=== PATIENT | male | born 2000 | race Caucasian/White ===

== ENCOUNTER → 2021-02-27 | Outpatient (CLI) | payer OTHER ==
--- NOTE | 2021-02-27 20:19 | US ---
EXAMINATION TYPE: US extremity nonvasc mass LT DATE OF EXAM: 02/27/2021 COMPARISON: NONE CLINICAL HISTORY: M71.22 Synovial cyst of popliteal space [[place]]. Left knee pain Left popliteal fossa: appears wnl Limited scanning performed IMPRESSION: Limited evaluation of the left popliteal fossa, no abnormality evident
== END | disposition home or self-care (01) ==
LOC: EEVIPCON 15:40 → RADUSWWP 15:51
PROVIDERS: ATTEND Family Medicine
DX: M71.22 Synovial cyst of popliteal space [Baker], left knee (principal)

== ENCOUNTER → 2021-11-02 | Outpatient (CLI) | payer OTHER ==
[2021-11-02 22:40] LABS: Basophils # (A) 0.07 X 10*3/uL (0.00-0.10); Eosinophils % (A) 2.9 %; HGB 14.5 g/dL (13.0-17.0); Lymphocytes # (A) 1.89 X 10*3/uL (0.90-5.00); Lymphocytes % (A) 27.8 %; MCH 27.1 pg (27.0-32.0); MCHC 32.2 g/dL (32.0-37.0); MCV 84.1 fL (80.0-97.0); Mean Platelet Volume 11.6 fL (9.5-12.2); Monocytes # (A) 0.69 X 10*3/uL (0.20-1.00); Monocytes % (A) 10.1 %; Neutrophils # (A) 3.92 X 10*3/uL (1.80-7.70); Neutrophils % (A) 57.8 %; Platelet Count 288 X 10*3/uL (140-440); RBC 5.35 X 10*6/uL (4.40-5.60); RDW 13.8 % (11.5-14.5)
[2021-11-02 22:55] LABS: African American GFR (CKD) 142.1 (60.0-200.0); Albumin 4.5 g/dL (3.8-4.9); Albumin/Globulin Ratio 1.55 (1.60-3.17); Anion Gap 10.7 mmol/L (10.00-18.00); BUN/Creat Ratio 13.47 Ratio (12.00-20.00); Blood Urea Nitrogen 11.5 mg/dL (9.0-27.0); C Reactive Protein 0.4 mg/dL (0.00-0.80); Calcium 9.5 mg/dL (8.7-10.3); Carbon Dioxide 24.5 mmol/L (20.0-27.5); Globulin 2.9 g/dL (1.6-3.3); Non-African American GFR(CKD) 122.6 (60.0-200.0); Potassium 4.3 mmol/L (3.5-5.5); Total Bilirubin 0.2 mg/dL (0.30-1.20); Total Protein 7.4 g/dL (6.2-8.2)
[2021-11-02 23:08] LABS: Erythrocyte Sedimentation Rate 10 mm/Hr (0-15)
[2021-11-03 01:19] LABS: Gliadin AB IgA, Deaminated NEGATIVE (NEGATIVE); Gliadin AB IgA, Unit 0.2 U/mL; Gliadin AB IgG, Deaminated NEGATIVE (NEGATIVE)
== END | disposition home or self-care (01) ==
LOC: LABWHC1 16:26
PROVIDERS: ATTEND Internal Medicine Gastroenterology
DX: K58.0 Irritable bowel syndrome with diarrhea (principal)
CPT/HCPCS: 36415; 80053; 83516; 85025; 85652; 86140

== ENCOUNTER 2023-12-07 13:08 | Emergency (ER) | payer OTHER, MEDICARE ==
--- NOTE | 2023-12-07 13:18 | ED ---
Chest Pain HPI - General Source: patient, family, RN notes reviewed Mode of arrival: ambulatory Limitations: no limitations - History of Present Illness MD Complaint: chest pain <Jaylyn Soto - Last Filed: 12/07/23 13:16> - General Source: patient, family, RN notes reviewed Mode of arrival: ambulatory Limitations: no limitations <Tish Marte - Last Filed: 12/07/23 22:05> - General Chief Complaint: Chest Pain Stated Complaint: Chest Pain Time Seen by Provider: 12/07/23 13:13 - History of Present Illness Initial Comments: Quick Note: This is a 23-year-old male who presents to the emergency department for chest pain. States that it started last night. This goes across his whole chest and down the right arm. He has minor shortness of breath. Patient is a rather poor historian and is having difficulty characterizing the pain. Denies any cardiac history. Also denies any history of similar symptoms in the past. (Jaylyn Soto) 23-year-old male presents to the emergency department with mother and father for evaluation of chest pain with radiation to the right arm. Father states that he was complaining about this last night. He states that the pain is in his central chest. He also reports pain going down the right arm and in the right anterior shoulder. He does report that it is painful catching his breath. Ad mits to some epigastric abdominal pain. Past medical history significant for GERD, autism spectrum disorder. (Tish Marte) - Related Data Allergies Allergy/AdvReac Type Severity Reaction Status Date / Time amoxicillin Allergy Nausea & Verified 12/07/23 13:55 Vomiting & Diarrhea Review of Systems ROS Other: All systems not noted in ROS Statement are negative. <Jaylyn Soto - Last Filed: 12/07/23 13:16> ROS Other: All systems not noted in ROS Statement are negative. <Tish Marte - Last Filed: 12/07/23 22:05> ROS Statement: Those systems with pertinent positive or pertinent negative responses have been documented in the HPI. General Exam <Jaylyn Soto - Last Filed: 12/07/23 13:16> Limitations: no limitations General appearance: alert, in no apparent distress Head exam: Present: atraumatic, normocephalic, normal inspection Eye exam: Present: normal appearance, PERRL, EOMI. Absent: scleral icterus, conjunctival injection, periorbital swelling ENT exam: Present: normal exam, mucous membranes moist Neck exam: Present: normal inspection. Absent: tenderness, meningismus, lymphadenopathy Respiratory exam: Present: normal lung sounds bilaterally. Absent: respiratory distress, wheezes, rales, rhonchi, stridor Cardiovascular Exam: Present: regular rate, normal rhythm, normal heart sounds. Absent: systolic murmur, diastolic murmur, rubs, gallop, clicks GI/Abdominal exam: Present: soft, normal bowel sounds. Absent: distended, tenderness, guarding, rebound, rigid Extremities exam: Present: normal inspection, full ROM, normal capillary refill. Absent: tenderness, pedal edema, joint swelling, calf tenderness Back exam: Present: normal inspection Neurological exam: Present: alert, oriented X3 Psychiatric exam: Present: normal affect, normal mood Skin exam: Present: warm, dry, intact, normal color. Absent: rash <Tish Marte - Last Filed: 12/07/23 22:05> - General Exam Comments Initial Comments: Visual Physical Exam Vital signs reviewed General: Well-appearing, nontoxic, no acute distress. Head: Normocephalic, atraumatic Eyes: PERRLA, EOMI ENT: Airway patent Chest: Nonlabored breathing Skin: No visual rash, normal skin tone Neuro: Alert and oriented 3 Musculoskeletal: No gross abnormalities (Jaylyn Soto) Course Vital Signs 12/07/23 12/07/23 12/07/23 13:50 17:29 19:00 Temperature 98.5 F 98.0 F Pulse Rate 81 67 64 Respiratory 18 20 18 Rate Blood Pressure 160/104 157/90 137/84 O2 Sat by Pulse 97 98 99 Oximetry Chest Pain [facility] <Jaylyn Soto - Last Filed: 12/07/23 13:16> <Tish Marte - Last Filed: 12/07/23 22:05> - MDM I performed the QuickNote portion of this chart. Signed Jaylyn Soto PA-C. (Jaylyn Soto) Was pt. sent in by a medical professional or institution (PAM Coleman, OTC CLERK, urgent care, hospital, or intermediate...) When possible be specific @ -No Did you speak to anyone other than the patient for history (EMS, parent, family, police, friend...)? What history was obtained from this source @ -Mother and father provided similar history of this patient Did you review nursing and triage notes (agree or disagree)? Why? @ -I reviewed and agree with nursing and triage notes Were old charts reviewed (outside hosp., previous admission, EMS record, old EKG, old radiological studies, urgent care reports/EKG's, intermediate records)? Report findings @ -No old charts were reviewed Differential Diagnosis (chest pain, altered mental status, abdominal pain women, abdominal pain men, vaginal bleeding, weakness, fever, dyspnea, syncope, headache, dizziness, GI bleed, back pain, seizure, CVA, palpatations, mental health, musculoskeletal)? @ -Differential Chest Pain: Stable Angina, Unstable Angina, STEMI, NSTEMI Aortic Dissection, Pneumothorax, Musculoskeletal, Esophageal Spasm GERD, Cholecystitis, Pancreatitis, Zoster, this is not meant to be an all-inclusive list. EKG interpreted by me (3pts min.). @ -EKG at 1407 shows sinus rhythm with sinus arrhythmia rate 74, SD 138, QRS 81 X-rays interpreted by me (1pt min.). @ -Chest XR shows hyperventilation with no acute infiltrate CT interpreted by me (1pt min.). @ -None done U/S interpreted by me (1pt. min.). @ -None done What testing was considered but not performed or refused? (CT, X-rays, U/S, labs)? Why? @ -None What meds were considered but not given or refused? Why? @ -None Did you discuss the management of the patient with other professionals (professionals i.e. , PA, OTC CLERK, lab, RT, psych nurse, forensic social worker, soil fertility specialist, teacher, neighborhood conservation officer, bottle caser)? Give summary @ -No Was smoking cessation discussed for >3mins.? @ -No Was critical care preformed (if so, how long)? @ -No Were there social determinants of health that impacted care today? How? (Homelessness, low income, unemployed, alcoholism, drug addiction, tr ansportation, low edu. Level, literacy, decrease access to med. care, fpc, rehab)? @ -No Was there de-escalation of care discussed even if they declined (Discuss DNR or withdrawal of care, Hospice)? DNR status @ -No What co-morbidities impacted this encounter? (DM, HTN, Smoking, COPD, CAD, Cancer, CVA, ARF, Chemo, Hep., AIDS, mental health diagnosis, sleep apnea, morbid obesity)? @ -None Was patient admitted / discharged? Hospital course, mention meds given and route, prescriptions, significant lab abnormalities, going to OR and other pertinent info. @ -Discharge. Patient presented to the emergency department for evaluation of chest pain radiating to the right anterior arm. Chest x-ray was obtained which shows hypoventilation with no acute pulmonary infiltrate. Laboratory studies o btained.CBC unremarkable, normal coagulation studies; negative troponin, lipase 240. Patient received a GI cocktail and ibuprofen. He states that his pain improved. Discussed these findings with patient and his family. Patient will be discharged home. Patient and family understanding agreeable with plan. Strict return precautions discussed. Patient stable at time of discharge. Case discussed with Dr. Conrad Undiagnosed new problem with uncertain prognosis? @ -No Drug Therapy requiring intensive monitoring for toxicity (Heparin, Nitro, Insulin, Cardizem)? @ -No Were any procedures done? @ -No Diagnosis/symptom? @ -Chest pain, epigastric pain, GERD Acute, or Chronic, or Acute on Chronic? @ -Acute Uncomplicated (without systemic symptoms) or Complicated (systemic symptoms)? @ -Uncomplicated Side effects of treatment? @ -No Exacerbation, Progression, or Severe Exacerbation? @ -No Poses a threat to life or bodily function? How? (Chest pain, [place], [place], pneumonia, PE, COPD, DKA, ARF, appy, cholecystitis, CVA, Diverticulitis, Homicidal, Suicidal, threat to staff... and all critical care pts) @ -No (Tish Marte) Disposition <Jaylyn Soto - Last Filed: 12/07/23 13:16> Is patient prescribed a controlled substance at d/c from ED?: No <Tish Marte - Last Filed: 12/07/23 22:05> Clinical Impression: Atypical chest pain, Gastroesophageal reflux disease Disposition: HOME SELF-CARE Condition: Stable Instructions (If sedation given, give patient instructions): Chest Pain (ED) Additional Instructions: Please utilize Tylenol and Motrin for discomfort. Follow up with your primary care provider. Return to the emergency department for new or worsening symptoms. Referrals: Sean Prajapati MD [Primary Care Provider] - 1-2 days
[2023-12-07 14:38] LABS: Basophils # (A) 0.1 k/uL (0-0.2); Basophils % (A) 1 %; Eosinophils # (A) 0.2 k/uL (0-0.7); Eosinophils % (A) 3 %; HCT 44.9 % (39.0-53.0); HGB 15.4 gm/dL (13.0-17.5); Lymphocytes # (A) 1.7 k/uL (1.0-4.8); Lymphocytes % (A) 26 %; MCH 29.8 pg (25.0-35.0); MCHC 34.2 g/dL (31.0-37.0); MCV 87.2 fL (80.0-100.0); Mean Platelet Volume 8.4; Monocytes # (A) 0.5 k/uL (0-1.0); Monocytes % (A) 8 %; Neutrophils % (A) 60 %; Platelet Count 280 k/uL (150-450); RBC 5.15 m/uL (4.30-5.90); RDW 12.8 % (11.5-15.5); WBC 6.6 k/uL (3.8-10.6)
--- NOTE | 2023-12-07 15:19 | XR ---
EXAMINATION TYPE: XR chest 2V DATE OF EXAM: 12/07/2023 COMPARISON: None HISTORY: 23-year-old male with chest pain TECHNIQUE: PA and lateral views FINDINGS: Heart size likely accentuated due to low lung volumes. Mild interstitial prominence versus crowded va scular markings. No consolidation or pleural effusion. IMPRESSION: Findings related to hypoventilatory changes. No definite acute process.
[2023-12-07 15:22] LABS: ALT 51 U/L (4-49); AST 35 U/L (17-59); African American GFR (CKD) >90 (>60 ml/min/1.73 sqM); Albumin 4.7 g/dL (3.5-5.0); Alkaline Phosphatase 70 U/L (38-126); Anion Gap 6 mmol/L; Blood Urea Nitrogen 14 mg/dL (9-20); Calcium 9.7 mg/dL (8.4-10.2); Carbon Dioxide 24 mmol/L (22-30); Chloride 107 mmol/L (98-107); Glucose 98 mg/dL (74-99); Non-African American GFR(CKD) >90 (>60 ml/min/1.73 sqM); Potassium 4.7 mmol/L (3.5-5.1); Sodium 137 mmol/L (137-145); Total Bilirubin 0.6 mg/dL (0.2-1.3); Total Protein 7.8 g/dL (6.3-8.2)
[2023-12-07] MEDS: IBUPROFEN 600 MG TAB PO STA (17:32)
[2023-12-07] MEDS: MAG HYDROX/AL HYDROX/SIMETH 30 ML, HYOSCYAMINE ELIXIR 10 ML, LIDOCAINE VISCOUS 2% 10 ML PO STA (17:33)
[2023-12-07 18:08] LABS: INR 0.9 (<1.2); Partial Thromboplastin Time 24.5 sec (22.0-30.0); Prothrombin Time 10.2 sec (10.0-12.5)
[2023-12-07 19:30] VITALS: BP 137/84; PULSE 64; RESP 18; TEMP 98
== END 2023-12-07 19:00 | disposition home or self-care (01) ==
LOC: EC 13:08
DX: K21.9 Gastro-esophageal reflux disease without esophagitis (principal); Z88.0 Allergy status to penicillin
CPT/HCPCS: 36415; 71046; 80053; 83690; 84484; 85025; 85610; 85730; 93005; 99285

== ENCOUNTER 2024-08-21 18:33 | Emergency (ER) | payer MEDICARE, OTHER ==
--- NOTE | 2024-08-21 19:13 | ED ---
Chest Pain HPI - General Source: patient, family, RN notes reviewed Mode of arrival: ambulatory Limitations: no limitations - History of Present Illness MD Complaint: chest pain Time: 14:30 Pain Radiation: RUE <Rashad Lee - Last Filed: 08/21/24 19:11> - General Source: patient, family, RN notes reviewed, old records reviewed <Brady Espino - Last Filed: 08/21/24 22:12> - General Chief Complaint: Chest Pain Stated Complaint: RT SHOULDER PAIN AND ARM HEART RACING Time Seen by Provider: 08/21/24 18:49 - History of Present Illness Initial Comments: This is a 24-year-old male with history of cognitive issues presenting with parents for chest pain and palpitations since 1430 this afternoon. Patient states pain is radiating to his right arm. Denies dyspnea, dizziness, sweating, pallor. Patient endorses history of anxiety that is increasing in severity. Patient endorses crying and angry outburst today as well. (Rashad Lee) Patient has a 24-year-old male who was brought in by his parents over concern for chest discomfort/heart palpitations. Patient does have a history of cognitive disability as well as anxiety. Patient has been having more outburst lately and is complaining of "my heart thumping." He description seems more like palpitations and less like rachael chest pain. Usually occur during stressful situations or when he gets worked up. Has been ongoing for multiple weeks. Occasionally complains of right arm pain with movements. Currently has no pain regarding this. Denies any other acute complaints including diaphoresis, nausea, vomiting. No significant cardiac history for the patient. Patient's parents are well familiar with the patient and they have been attempting to follow-up with [facility] however have not yet had appointments. Their concern for it being anxiety as it does run in the family. They present for further evaluation. Originally seen as a quick note.Once again, symptoms have been ongoing for multiple weeks intermittent. More or less daily. (Brady Espino) - Related Data Previous Rx's Medication Instructions Recorded LORazepam [Ativan] 0.5 mg PO BID PRN 3 Days #6 tab 08/21/24 Allergies Allergy/AdvReac Type Severity Reaction Status Date / Time amoxicillin Allergy Nausea & Verified 08/21/24 18:52 Vomiting & Diarrhea Review of Systems ROS Other: All systems not noted in ROS Statement are negative. <Rashad Lee - Last Filed: 08/21/24 19:11> ROS Other: All systems not noted in ROS Statement are negative. <Brady Espino - Last Filed: 08/21/24 22:12> ROS Statement: Those systems with pertinent positive or pertinent negative responses have been documented in the HPI. Review of Systems: CONST: Denies fever EYES: Denies blurry vision ENT: Denies nasal congestion C/V: Denies Chest pain RESP: Denies shortness of breath GI: Denies abdominal pain : Denies dysuria SKIN: Denies rash. MSK: Denies joint pain. NEURO: Denies headache (Brady Espino) EKG Findings - EKG Comments: EKG Findings:: 12-lead Electrocardiogram Interpretation Note. EKG was reviewed and interpreted by myself. 12-lead ECG performed at 01 is interpreted by me as revealing normal sinus rhythm at a rate of 98 beats per minute. [place] is normal. CT interval is 141 ms, QRS duration is 86 ms, QTc is 391 ms.. There were no ST or T wave abnormalities to suggest myocardial ischemia or injury. R wave progression across the precordium was satisfactory. By my interpretation this EKG is non-diagnostic for acute ischemia. - EKG Results: EKG: interpreted by ERMD <rBady Espino - Last Filed: 08/21/24 22:12> Past Medical History Past Medical History: GERD/Reflux Additional Past Medical History / Comment(s): cognitive disability History of Any Multi-Drug Resistant Organisms: None Reported Past Surgical History: No Surgical Hx Reported Past Psychological History: No Psychological Hx Reported Smoking Status: Never smoker Past Alcohol Use History: None Reported Past Drug Use History: None Reported <Rashad Lee - Last Filed: 08/21/24 19:11> General Exam Limitations: no limitations <Rashad Lee - Last Filed: 08/21/24 19:11> <Brady Espino - Last Filed: 08/21/24 22:12> - General Exam Comments Initial Comments: Visual Physical Exam Vital signs reviewed General: Well-appearing, nontoxic, no acute distress. Head: Normocephalic, atraumatic Eyes: PERRLA, EOMI ENT: Airway patent Chest: Nonlabored breathing Skin: No visual rash, normal skin tone Neuro: Alert and oriented 3 Musculoskeletal: No gross abnormalities (Rashad Lee) General: Appears mildly anxious but otherwise resting comfortably. HEAD: Normal with no signs of head trauma. EYES: PERRLA, EOMI, conjunctiva normal, no discharge. ENT: Hearing grossly intact, normal oropharynx. RESPIRATORY: Clear breath sounds bilaterally. No wheezes, rales, or rhonchi. C/V: Regular rate and rhythm. S1 and S2 auscultated, no edema, peripheral pulses 2+ and intact throughout ABD: Abd is soft, nontender, nondistended EXT: Normal range of motion, no obvious deformity SKIN: No rashes or lesions observed on exposed skin. NEURO: Alert and oriented x 4. (Brady Espino) Course Vital Signs 08/21/24 08/21/24 18:52 21:17 Temperature 97.5 F L Pulse Rate 103 H 100 Respiratory 20 16 Rate Blood Pressure 161/118 151/97 O2 Sat by Pulse 97 98 Oximetry Chest Pain MDM <Rashad Lee - Last Filed: 08/21/24 19:11> <Brady Espino - Last Filed: 08/21/24 22:12> - MDM I completed the quick note portion of this chart signed RHYS Jon (Rashad Lee) Was pt. sent in by a medical professional or institution ([facility] Coleman, DIRECTOR OF SPECIAL SERVICES, urgent care, hospital, or shelter...) When possible be specific @ -No Did you speak to anyone other than the patient for history (EMS, parent, family, police, friend...)? What history was obtained from this source @ -Patient's parents are the primary historians for the patient. Did you review nursing and triage notes (agree or disagree)? Why? @ -I reviewed and agree with nursing and triage notes Were old charts reviewed (outside hosp., previous admission, EMS record, old EKG, old radiological studies, urgent care reports/EKG's, shelter records)? Report findings @ -No old charts were reviewed Differential Diagnosis (chest pain, altered mental status, abdominal pain women, abdominal pain men, vaginal bleeding, weakness, fever, dyspnea, syncope, headache, dizziness, GI bleed, back pain, seizure, CVA, palpatations, mental health, musculoskeletal)? @ -Heart palpitations, anxiety, panic attacks, chest pain. This list is not all inclusive. EKG interpreted by me (3pts min.). @ -As above X-rays interpreted by me (1pt min.). @ -X-ray reveals no obvious acute cardiopulmonary process. CT interpreted by me (1pt min.). @ -None done U/S interpreted by me (1pt. min.). @ -None done What testing was considered but not performed or refused? (CT, X-rays, U/S, labs)? Why? @ -None What meds were considered but not given or refused? Why? @ -None Did you discuss the management of the patient with other professionals (professionals i.e. , PA, DIRECTOR OF SPECIAL SERVICES, lab, RT, psych nurse, social services aide, senior product designer, teacher, policy officer, director of casework)? Give summary @ -No Was smoking cessation discussed for >3mins.? @ -No Was critical care preformed (if so, how long)? @ -No Were there social determinants of health that impacted care today? How? (Homelessness, low income, unemployed, alcoholism, drug addiction, transportation, low edu. Level, literacy, decrease access to med. care, intermediate, rehab)? @ -No Was there de-escalation of care discussed even if they declined (Discuss DNR or withdrawal of care, Hospice)? DNR status @ -No What co-morbidities impacted this encounter? (DM, HTN, Smoking, COPD, CAD, Cancer, CVA, ARF, Chemo, Hep., AIDS, mental health diagnosis, sleep apnea, morb id obesity)? @ -None Was patient admitted / discharged? Hospital course, mention meds given and route, prescriptions, significant lab abnormalities, going to OR and other pertinent info. @ -Based on the patient's presentation and physical exam, it does appear patient is having anxiety episodes as well as possible panic episodes. The heart palpitations during stressful episodes does seem to be fitting with that diagnosis. I evaluated the patient after workup was completed which was remarkable for EKG that was within acceptable limits, undetectable troponin. Remainder the workup unremarkable. I discussed results with the parents as well as the patient. He will be given a dose of Ativan and we will reevaluate. He is resting comfortably at this time. They were in agreement this plan. Vital signs within acceptable limits. Following Ativan dose, patient is feeling improved. States he has no symptoms. He will be discharged home with a short-term prescription of Ativan as well as strict return precautions. Recommend follow-up with their mental health resources which they are attempting to. Patient's parents and patient were in agreement with this plan. Patient will be discharged home at this time. I will provide the patient with a prescription for Ativan. I instructed the patient to follow up with their PCP in the next 1-3 days.. I explained that the patient should return to the emergency department if they experience any worsening symptoms. Strict return precautions were discussed with the patient. The patient expressed understanding of these instructions. I answered all questions that the patient had. The patient was discharged home in good condition with their prescriptions and follow up information. Undiagnosed new problem with uncertain prognosis? @ -No Drug Therapy requiring intensive monitoring for toxicity (Heparin, Nitro, Insulin, Cardizem)? @ -No Were any procedures done? @ -No Diagnosis/symptom? @ -Heart palpitations, anxiety Acute, or Chronic, or Acute on Chronic? @ -Acute on chronic Uncomplicated (without systemic symptoms) or Complicated (systemic symptoms)? @ -Uncomplicated Side effects of treatment? @ -No Exacerbation, Progression, or Severe Exacerbation? @ -No Poses a threat to life or bodily function? How? (Chest pain, [place], [place], pneumonia, PE, COPD, DKA, ARF, appy, cholecystitis, CVA, Diverticulitis, Homicidal, Suicidal, threat to staff... and all critical care pts) @ -Unlikely at this time (Brady Espino) Disposition <Rashad Lee - Last Filed: 08/21/24 19:11> Is patient prescribed a controlled substance at d/c from ED?: Yes When asked, does pt state using other controlled substances?: No If prescribed controlled substance>3 days was MAPS reviewed?: Prescribed <3 Days Time of Disposition: 10:00 <Brady Espino - Last Filed: 08/21/24 22:12> Clinical Impression: Heart palpitations, Anxiety Disposition: HOME SELF-CARE Condition: Good Instructions (If sedation given, give patient instructions): Heart Palpitations (ED), Anxiety (ED) Additional Instructions: Follow-up with PCP as well as mental health resources within the next 1 to 3 days. Return if any worsening symptoms. Prescriptions: LORazepam [Ativan] 0.5 mg PO BID PRN 3 Days #6 tab PRN Reason: Anxiety Referrals: Sean Prajapati MD [Primary Care Provider] - 1-2 days
--- NOTE | 2024-08-21 19:53 | XR ---
EXAMINATION TYPE: XR chest 2V DATE OF EXAM: 08/21/2024 7:50 PM COMPARISON: Chest radiographs from 12/07/2023 CLINICAL INDICATION: Male, 24 years old with history of Chest Pain; TECHNIQUE: XR chest 2V Frontal and lateral views of the chest. FINDINGS: Lungs/Pleura: There is no evidence of pleural effusion, focal consolidation, or pneumothorax. Pulmonary vascularity: Unremarkable. Heart/mediastinum: Cardiomediastinal silhouette is unremarkable. Musculoskeletal: No acute osseous pathology. IMPRESSION: No acute cardiopulmonary disease/process. [facility] Jolly Guzman, , 08/21/2024 7:51 PM
[2024-08-21 20:27] LABS: Basophils # (A) 0.1 k/uL (0-0.2); Basophils % (A) 1 %; Eosinophils # (A) 0.1 k/uL (0-0.7); Eosinophils % (A) 1 %; HCT 46.1 % (39.0-53.0); HGB 15.5 gm/dL (13.0-17.5); Lymphocytes # (A) 1.9 k/uL (1.0-4.8); Lymphocytes % (A) 19 %; MCH 28.7 pg (25.0-35.0); MCHC 33.5 g/dL (31.0-37.0); MCV 85.6 fL (80.0-100.0); Mean Platelet Volume 8.1; Monocytes # (A) 0.6 k/uL (0-1.0); Monocytes % (A) 6 %; Neutrophils # (A) 7.1 k/uL (1.3-7.7); Neutrophils % (A) 71 %; Platelet Count 288 k/uL (150-450); RBC 5.39 m/uL (4.30-5.90); RDW 13.2 % (11.5-15.5)
[2024-08-21 20:35] LABS: Partial Thromboplastin Time 25.3 sec (22.0-30.0); Prothrombin Time 10.5 sec (10.0-12.5)
[2024-08-21 20:39] LABS: ALT 50 U/L (4-49); AST 27 U/L (17-59); African American GFR (CKD) >90 (>60 ml/min/1.73 sqM); Albumin 5.1 g/dL (3.5-5.0); Alkaline Phosphatase 82 U/L (38-126); Anion Gap 9 mmol/L; Blood Urea Nitrogen 14 mg/dL (9-20); Calcium 9.7 mg/dL (8.4-10.2); Carbon Dioxide 28 mmol/L (22-30); Chloride 102 mmol/L (98-107); Glucose 86 mg/dL (74-99); Magnesium 2.1 mg/dL (1.6-2.3); Non-African American GFR(CKD) >90 (>60 ml/min/1.73 sqM); Potassium 4.3 mmol/L (3.5-5.1); Sodium 139 mmol/L (137-145); Total Bilirubin 0.7 mg/dL (0.2-1.3); Total Protein 8.2 g/dL (6.3-8.2)
[2024-08-21] MEDS: LORazepam 0.5 MG TAB PO STA (21:30)
[2024-08-21] MEDS: LORazepam 1 MG TAB PO STA (22:08)
[2024-08-21 22:14] VITALS: BP 149/99; PULSE 96; RESP 18; TEMP 97.8
== END 2024-08-21 22:14 | disposition home or self-care (01) ==
LOC: EC 18:33
DX: R00.2 Palpitations (principal); F41.9 Anxiety disorder, unspecified; Z88.0 Allergy status to penicillin
CPT/HCPCS: 36415; 71046; 80053; 83735; 84484; 85025; 85610; 85730; 93005; 99285

== ENCOUNTER 2024-12-15 10:28 | Emergency (ER) | payer MEDICARE, OTHER ==
[2024-12-15 10:50] VITALS: RESP 16
--- NOTE | 2024-12-15 11:01 | ED ---
General Adult HPI - General Chief complaint: Seizure Stated complaint: poss seizure Time Seen by Provider: 12/15/24 10:31 Source: family, EMS Mode of arrival: EMS - History of Present Illness Initial comments: Dictation was produced using Sing[employer] dictation software. please excuse any grammatical, word or spelling errors. Chief Complaint: 24-year-old male with cognitive delay autism presents to the ER for seizure History of Present Illness: Patient 24-year-old male denies any significant medical history. History present illness obtained from father. Father states that they heard a weird noise. Patient was found to have tonic-clonic activity and stiffness. No history of seizure. States that the tonic-clonic activity lasted for approximately 2 minutes. Spoke stickler for several minutes after. Patient Nuys any symptoms at the bedside. He is mentating appropriately and acting at baseline according to family. The ROS documented in this emergency department record has been reviewed and confirmed by me. Those systems with pertinent positive or negative responses have been documented in the HPI. All other systems are other negative and/or noncontributory. - Related Data Previous Rx's Medication Instructions Recorded LORazepam [Ativan] 0.5 mg PO BID PRN 3 Days #6 tab 08/21/24 Allergies Allergy/AdvReac Type Severity Reaction Status Date / Time amoxicillin Allergy Nausea & Verified 12/15/24 10:41 Vomiting & Diarrhea Review of Systems ROS Statement: Those systems with pertinent positive or pertinent negative responses have been documented in the HPI. ROS Other: All systems not noted in ROS Statement are negative. Past Medical History Past Medical History: GERD/Reflux Additional Past Medical History / Comment(s): cognitive disability, Autusm History of Any Multi-Drug Resistant Organisms: None Reported Past Surgical History: No Surgical Hx Reported Additional Past Surgical History / Comment(s): Tubes placed in ears Past Psychological History: No Psychological Hx Reported Smoking Status: Never smoker Past Alcohol Use History: None Reported Past Drug Use History: None Reported General Exam - General Exam Comments Initial Comments: PHYSICAL EXAM: General Impression: Alert and oriented x3, not in acute distress HEENT: Normocephalic atraumatic, extra-ocular movements intact, pupils equal and reactive to light bilaterally, mucous membranes moist. Cardiovascular: Heart regular rate and rhythm Chest: Able to complete full sentences, no retractions, no tachypnea Abdomen: abdomen soft, non-tender, non-distended, no organomegaly Musculoskeletal: Pulses present and equal in all extremities, no peripheral edema Motor: no focal deficits noted Neurological: CN II-XII grossly intact, no focal motor or sensory deficits noted Skin: Intact with no visualized rashes Psych: Normal affect and mood Course Vital Signs 12/15/24 12/15/24 12/15/24 10:41 11:47 12:14 Temperature 97.4 F L Pulse Rate 105 H 103 H 97 Respiratory 16 16 16 Rate Blood Pressure 155/110 154/107 151/107 O2 Sat by Pulse 92 L 98 98 Oximetry EKG Findings - EKG Comments: EKG Findings:: My EKG interpretation: Ventricular rate 109, sinus tachycardia,. 148, QRS 81, QTc 388. Overall, this EKG is unremarkable Medical Decision Making - Medical Decision Making Was pt. sent in by a medical professional or institution (, PA, SHOE SHANKER, urgent care, hospital, or shelter...) When possible be specific @ -No Did you speak to anyone other than the patient for history (EMS, parent, family, police, friend...)? What history was obtained from this source @ -See above Did you review nursing and triage notes (agree or disagree)? Why? @ -I reviewed and agree with nursing and triage notes Were old charts reviewed (outside hosp., previous admission, EMS record, old EKG, old radiological studies, urgent care reports/EKG's, shelter records)? Report findings @ -No old charts were reviewed Differential Diagnosis (chest pain, altered mental status, abdominal pain women, abdominal pain men, vaginal bleeding, musculoskeletal, weakness, fever, dyspnea, syncope, headache, dizziness, GI bleed, back pain, seizure, CVA, palpatations, mental health)? @ -Differential Seizure: Recurrent seizure disorder, febrile seizure, alcohol withdrawal, stimulants, meningitis, encephalitis, intercranial hemorrhage, intracranial tumor, stroke, eclampsia, thyrotoxicosis, hypocalcemia, hyponatremia, hypernatremia, hypomagnesemia, psychogenic, this is not meant to be an all-inclusive list. EKG interpreted by me (3pts min.). @ -See above X-rays interpreted by me (1pt min.). @ -None done CT interpreted by me (1pt min.). @ -CT brain is nonacute U/S interpreted by me (1pt. min.). @ -None done What testing was considered but not performed or refused? (CT, X-rays, U/S, labs)? Why? @ -None What meds were considered but not given or refused? Why? @ -None Was smoking cessation discussed for >3mins.? @ -No Were there social determinants of health that impacted care today? How? (Homelessness, low income, unemployed, alcoholism, drug addiction, transportation, low edu. Level, literacy, decrease access to med. care, prison, rehab)? @ -No Was there de-escalation of care discussed even if they declined (Discuss DNR or withdrawal of care, Hospice)? DNR status @ -No What co-morbidities impacted this encounter? (DM, HTN, Smoking, COPD, CAD, Cancer, CVA, ARF, Chemo, Hep., AIDS, mental health diagnosis, sleep apnea, morbid obesity)? @ -Mental delay Was patient admitted / discharged? Hospital course, mention meds given and route, prescriptions, significant lab abnormalities, going to OR and other p ertinent info. @ -24-year-old male with new onset seizure. Patient well-appearing at the bedside appears to be at baseline and endorsed at baseline by father at the bedside. Vital signs are stable. Physical examination is unremarkable. Laboratory evaluation obtained. Lactic acidosis of 4.2 rest of labs unremarkable. CT brain is negative. Disposition options were discussed with family member at the bedside. They were given option to be admitted with neurology evaluation or discharged to follow-up with neurology at home. They did prefer to be discharged. Case discussed with Dr. Grimes of neurology states that she does not believe it is beneficial for patient to be started on any ant iseizure medications at this time. Return precautions discussed. Did you discuss the management of the patient with other professionals (professionals i.e. , PA, SHOE SHANKER, lab, RT, psych nurse, nursing home social worker, foreign service teacher, teacher, zoology technical officer, case worker)? Give summary @ -No Was critical care preformed (if so, how long)? @ -No Undiagnosed new problem with uncertain prognosis? @ -No Drug Therapy requiring intensive monitoring for toxicity (Heparin, Nitro, Insulin, Cardizem)? @ -No Were any procedures done? @ -No Diagnosis/symptom? Acute, or Chronic, or Acute on Chronic? Uncomplicated (with out systemic symptoms) or Complicated (systemic symptoms)? @ -New onset seizure Side effects of treatment? @ -No Exacerbation, Progression, or Severe Exacerbation? @ -No Poses a threat to life or bodily function? How? (Chest pain, USA, DE, pneumonia, PE, COPD, DKA, ARF, appy, cholecystitis, CVA, Diverticulitis, Homicidal, Suicidal, threat to staff... and all critical care pts) @ -yes - Lab Data Result diagrams: 12/15/24 11:09 12/15/24 11:09 Lab Results 12/15/24 12/15/24 12/15/24 Range/Units 11:09 11:09 11:09 WBC 9.2 (3.8-10.6) k/uL RBC 5.43 (4.30-5.90) m/uL Hgb 14.8 (13.0-17.5) gm/dL Hct 45.0 (39.0-53.0) % MCV 82.9 (80.0-100.0) fL MCH 27.3 (25.0-35.0) pg MCHC 32.9 (31.0-37.0) g/dL RDW 13.5 (11.5-15.5) % Plt Count 255 (150-450) k/uL MPV 8.0 Neutrophils % 73 % Lymphocytes % 18 % Monocytes % 5 % Eosinophils % 2 % Basophils % 1 % Neutrophils # 6.8 (1.3-7.7) k/uL Lymphocytes # 1.6 (1.0-4.8) k/uL Monocytes # 0.5 (0-1.0) k/uL Eosinophils # 0.2 (0-0.7) k/uL Basophils # 0.1 (0-0.2) k/uL Sodium 138 (137-145) mmol/L Potassium 4.1 (3.5-5.1) mmol/L Chloride 104 (98-107) mmol/L Carbon Dioxide 22 (22-30) mmol/L Anion Gap 12 mmol/L BUN 9 (9-20) mg/dL Creatinine 0.71 (0.66-1.25) mg/dL Est GFR (CKD-EPI)AfAm >90 (>60 ml/min/1.73 sqM) Est GFR (CKD-EPI)NonAf >90 (>60 ml/min/1.73 sqM) Glucose 128 H (74-99) mg/dL Plasma Lactic Acid Kendall 4.2 H* (0.7-2.0) mmol/L Calcium 8.6 (8.4-10.2) mg/dL Magnesium 2.0 (1.6-2.3) mg/dL Disposition Clinical Impression: New onset seizure Disposition: HOME SELF-CARE Condition: Fair Instructions (If sedation given, give patient instructions): Seizure/Epilepsy Discharge Instructions & Follow-Up, New-Onset Seizure in Adults (ED) Additional Instructions: follow up with outpatient neurology Is patient prescribed a controlled substance at d/c from ED?: No Referrals: Sean Prajapati MD [Primary Care Provider] - 1-2 days Time of Disposition: 12:17
[2024-12-15 11:19] LABS: Basophils # (A) 0.1 k/uL (0-0.2); Basophils % (A) 1 %; Eosinophils # (A) 0.2 k/uL (0-0.7); Eosinophils % (A) 2 %; HGB 14.8 gm/dL (13.0-17.5); Lymphocytes # (A) 1.6 k/uL (1.0-4.8); Lymphocytes % (A) 18 %; MCH 27.3 pg (25.0-35.0); MCHC 32.9 g/dL (31.0-37.0); MCV 82.9 fL (80.0-100.0); Monocytes # (A) 0.5 k/uL (0-1.0); Monocytes % (A) 5 %; Neutrophils # (A) 6.8 k/uL (1.3-7.7); Neutrophils % (A) 73 %; Platelet Count 255 k/uL (150-450); RBC 5.43 m/uL (4.30-5.90); RDW 13.5 % (11.5-15.5); WBC 9.2 k/uL (3.8-10.6)
[2024-12-15 11:39] LABS: African American GFR (CKD) >90 (>60 ml/min/1.73 sqM); Anion Gap 12 mmol/L; Blood Urea Nitrogen 9 mg/dL (9-20); Calcium 8.6 mg/dL (8.4-10.2); Carbon Dioxide 22 mmol/L (22-30); Chloride 104 mmol/L (98-107); Glucose 128 mg/dL (74-99); Non-African American GFR(CKD) >90 (>60 ml/min/1.73 sqM); Potassium 4.1 mmol/L (3.5-5.1); Sodium 138 mmol/L (137-145)
--- NOTE | 2024-12-15 11:49 | CT ---
EXAMINATION TYPE: CT brain wo con CT DLP: 1098.4 mGycm, Automated exposure control for dose reduction was used. DATE OF EXAM: 12/15/2024 11:40 AM COMPARISON: None. CLINICAL INDICATION:Male, 24 years old with history of new onset seizure, seizure TECHNIQUE: Brain: Multiple axial CT images of the brain were obtained without IV contrast. . Coronal and sagitta l reformats reviewed. FINDINGS: Brain: Extra-axial spaces: No abnormal extra-axial fluid collections. Ventricular system: Within normal limits Cerebral parenchyma: No acute intraparenchymal hemorrhage or mass effect. The shaikh-white junction is well differentiated. Cerebellum: Low-lying cerebellar tonsils measuring up to 3 mm below the foramen magnum. Mass effect: No evidence of midline shift. Intracranial vasculature: unremarkable Soft tissues: Normal. Calvarium/osseous structures: No depressed skull fracture. Paranasal sinuses and mastoid air cells: The mastoid air cells are clear. Moderate mucosal thickening of the bilateral maxillary sinuses and left renal sinus. Mild mucosal thickening of the right spheno id sinus. Mild mucosal thickening of the ethmoid sinuses. Minimal mucosal thickening of the right fro ntal sinus. Visualized orbits: Orbital contents are intact. IMPRESSION: 1. No acute intracranial process. 2. Moderate paranasal sinus disease. 3. Low-lying cerebellar tonsils measuring up to 3 mm below the foramen magnum. [facility], , 12/15/2024 11:47 AM
[2024-12-15 12:14] VITALS: PULSE 97
[2024-12-15 12:33] VITALS: BP 147/101; TEMP 98.6
== END 2024-12-15 12:33 | disposition home or self-care (01) ==
LOC: EC 10:28
DX: R56.9 Unspecified convulsions (principal); Z88.0 Allergy status to penicillin; Z86.59 Personal history of other mental and behavioral disorders
CPT/HCPCS: 36415; 70450; 80048; 83605; 83735; 85025; 93005; 99285

== ENCOUNTER 2024-12-26 23:23 | Emergency (ER) | payer MEDICARE, OTHER ==
[2024-12-26 23:29] VITALS: TEMP 98.4
[2024-12-27 01:06] LABS: Influenza A Not Detected (Not Detectd); Influenza B Not Detected (Not Detectd); RSV Not Detected (Not Detectd)
--- NOTE | 2024-12-27 01:06 | XR ---
EXAM: XR Chest, 2 Views CLINICAL HISTORY: XR Reason: Cough TECHNIQUE: Frontal and lateral views of the chest. COMPARISON: December 07, 2023 FINDINGS: Lungs: Underinflated lungs with perihilar and bibasilar subsegmental atelectasis versus infiltrates. Pleural space: Unremarkable. No pneumothorax. Heart: Unremarkable. No cardiomegaly. Mediastinum: Unremarkable. Normal mediastinal contour. Bones/joints: Unremarkable. No acute fracture. Upper abdomen: Unremarkable as visualized. No pneumoperitoneum under the diaphragm. IMPRESSION: Underinflated lungs with perihilar and bibasilar subsegmental atelectasis versus infiltrates. This is slightly worse than previous.
[2024-12-27] MEDS: IPRATROPIUM-ALBUTEROL 3 ML NEB INHALATION STA (01:08)
[2024-12-27 01:34] VITALS: BP 176/101; PULSE 113; RESP 19
--- NOTE | 2024-12-27 01:43 | ED ---
General Adult HPI - General Chief complaint: Upper Respiratory Infection Stated complaint: THAD, cough Time Seen by Provider: 12/26/24 23:39 Source: patient Mode of arrival: ambulatory Limitations: no limitations - History of Present Illness Initial comments: 24-year-old male presenting with chief complaint of cough and congestion. Patient reports symptoms started over the weekend and have been worse over the past 2 to 3 days. Nonproductive cough but patient's father states he can hear rattling in his chest when he coughs. He is having bodyaches and some shortness of breath as well. He is having some chest discomfort with coughing. He is also having some throat discomfort likely due to the coughing. No sinus pain or ear pain. No nausea vomiting abdominal pain or diarrhea. No lower extremity swelling - Related Data Previous Rx's Medication Instructions Recorded LORazepam [Ativan] 0.5 mg PO BID PRN 3 Days #6 tab 08/21/24 Albuterol Sulfate [Albuterol 1 puff PO Q4-6H PRN #8.5 gm 12/27/24 Sulfate Hfa] methylPREDNISolone Dose Pack 4 mg PO DIRECTED #1 packet 12/27/24 [Medrol Dose Pack] Allergies Allergy/AdvReac Type Severity Reaction Status Date / Time amoxicillin Allergy Nausea & Verified 12/26/24 23:30 Vomiting & Diarrhea Review of Systems ROS Statement: Those systems with pertinent positive or pertinent negative responses have been documented in the HPI. ROS Other: All systems not noted in ROS Statement are negative. Past Medical History Past Medical History: GERD/Reflux, Seizure Disorder Additional Past Medical History / Comment(s): cognitive disability, Autusm History of Any Multi-Drug Resistant Organisms: None Reported Past Surgical History: No Surgical Hx Reported Additional Past Surgical History / Comment(s): Tubes placed in ears Past Psychological History: No Psychological Hx Reported Smoking Status: Never smoker Past Alcohol Use History: None Reported Past Drug Use History: None Reported General Exam Limitations: no limitations General appearance: alert, in no apparent distress Head exam: Present: atraumatic, normocephalic, normal inspection Eye exam: Present: normal appearance, EOMI Neck exam: Present: normal inspection. Absent: meningismus Respiratory exam: Present: wheezes (Faint expiratory wheezes). Absent: respiratory distress, rales, rhonchi, stridor Cardiovascular Exam: Present: normal rhythm, tachycardia, normal heart sounds. Absent: systolic murmur, diastolic murmur, rubs, gallop, clicks Neurological exam: Present: alert, oriented X3 Psychiatric exam: Present: normal affect, normal mood Skin exam: Present: warm, dry, normal color Course Vital Signs 12/26/24 12/27/24 12/27/24 23:27 01:09 01:22 Temperature 98.4 F Pulse Rate 116 H 111 H 110 H Respiratory 20 Rate Blood Pressure 179/99 O2 Sat by Pulse 94 L Oximetry 12/27/24 01:33 Temperature 98.4 F Pulse Rate 113 H Respiratory 19 Rate Blood Pressure 176/101 O2 Sat by Pulse 97 Oximetry Medical Decision Making - Medical Decision Making Was pt. sent in by a medical professional or institution (, PA, YEAST WASHER, urgent care, hospital, or senior care...) When possible be specific @ -No Did you speak to anyone other than the patient for history (EMS, parent, family, police, friend...)? What history was obtained from this source @ -No Did you review nursing and triage notes (agree or disagree)? Why? @ -I reviewed and agree with nursing and triage notes Were old charts reviewed (outside hosp., previous admission, EMS record, old EKG, old radiological studies, urgent care reports/EKG's, senior care records)? Report findings @ -No old charts were reviewed Differential Diagnosis (chest pain, altered mental status, abdominal pain women, abdominal pain men, vaginal bleeding, weakness, fever, dyspnea, syncope, headache, dizziness, GI bleed, back pain, seizure, CVA, palpatations, mental health, musculoskeletal)? @ -Differential includes influenza, RSV, COVID, pneumonia, bronchitis, asthma, not an all-inclusive list EKG interpreted by me (3pts min.). @ -As above X-rays interpreted by me (1pt min.). @ -Chest x-ray shows underinflated lungs with perihilar and bibasilar subsegm ental atelectasis versus infiltrates. This is slightly worse than previous CT interpreted by me (1pt min.). @ -None done U/S interpreted by me (1pt. min.). @ -None done What testing was considered but not performed or refused? (CT, X-rays, U/S, labs)? Why? @ -None What meds were considered but not given or refused? Why? @ -None Did you discuss the management of the patient with other professionals (professionals i.e. DrCyndi, PA, YEAST WASHER, lab, RT, psych nurse, social media marketing analyst, rn lpn lvn, teacher, search and rescue officer, geriatric case manager)? Give summary @ -No Was smoking cessation discussed for >3mins.? @ -No Was critical care preformed (if so, how long)? @ -No Were there social determinants of health that impacted care today? How? (Homelessness, low income, unemployed, alcoholism, drug addiction, transportat ion, low edu. Level, literacy, decrease access to med. care, nursing home, rehab)? @ -No Was there de-escalation of care discussed even if they declined (Discuss DNR or withdrawal of care, Hospice)? DNR status @ -No What co-morbidities impacted this encounter? (DM, HTN, Smoking, COPD, CAD, Cancer, CVA, ARF, Chemo, Hep., AIDS, mental health diagnosis, sleep apnea, morbid obesity)? @ -None Was patient admitted / discharged? Hospital course, mention meds given and route, prescriptions, significant lab abnormalities, going to OR and other pertinent info. @ -24-year-old male presenting with chief complaint of URI-like symptoms. History and physical examination are conducted. Some faint wheezes are heard on expiratory phase. Solu-Medrol and DuoNeb are ordered. Patient is negative for influenza, RSV, COVID. Chest x-ray shows underinflated lungs with perihilar and bibasilar subsegmental atelectasis. Patient reports improvement after breathing treatment. Patient provided with inhaler and steroids for home. Patient and father educated on today's findings and treatment plan. Follow-up with PCP. Report back to ER with any new or worsening symptoms. Discussed return parameters and answered all questions. Patient conveyed verbal understanding and agreed to the plan. I discussed this case in detail with my attending Dr. Newell Undiagnosed new problem with uncertain prognosis? @ -No Drug Therapy requiring intensive monitoring for toxicity (Heparin, Nitro, Insulin, Cardizem)? @ -No Were any procedures done? @ -No Diagnosis/symptom? @ -Bronchitis Acute, or Chronic, or Acute on Chronic? @ -Acute Uncomplicated (without systemic symptoms) or Complicated (systemic symptoms)? @ -Uncomplicated Side effects of treatment? @ -No Exacerbation, Progression, or Severe Exacerbation? @ -No Poses a threat to life or bodily function? How? (Chest pain, USA, [place], pneumonia, PE, COPD, DKA, ARF, appy, cholecystitis, CVA, Diverticulitis, Homicidal, Suicidal, threat to staff... and all critical care pts) @ -Low likelihood - Lab Data Lab Results 12/26/24 Range/Units 23:38 Influenza Type A (PCR) Not Detected (Not Detectd) Influenza Type B (PCR) Not Detected (Not Detectd) RSV (PCR) Not Detected (Not Detectd) SARS-CoV-2 (PCR) Not Detected (Not Detectd) Disposition Clinical Impression: Bronchitis Disposition: HOME SELF-CARE Condition: Good Instructions (If sedation given, give patient instructions): Acute Bronchitis (ED) Additional Instructions: Follow-up with PCP. Report back to ER with any new or worsening symptoms. Prescriptions: Albuterol Sulfate [Albuterol Sulfate Hfa] 1 puff PO Q4-6H PRN #8.5 gm PRN Reason: Shortness Of Breath methylPREDNISolone Dose Pack [Medrol Dose Pack] 4 mg PO DIRECTED #1 packet Is patient prescribed a controlled substance at d/c from ED?: No Referrals: Sean Prajapati MD [Primary Care Provider] - 1-2 days Time of Disposition: 01:43
== END 2024-12-27 01:52 | disposition home or self-care (01) ==
LOC: EC 23:23
DX: J40 Bronchitis, not specified as acute or chronic (principal); Z88.0 Allergy status to penicillin
CPT/HCPCS: 71046; 87636; 94640; 99285

== ENCOUNTER 2025-01-16 07:48 | Emergency (ER) | payer MEDICARE, OTHER ==
[2025-01-16] MEDS: ACETAMINOPHEN TAB 325 MG TAB PO STA (08:12)
[2025-01-16] MEDS: SODIUM CHLORIDE 0.9% 1,000 ML IV STA (08:12)
[2025-01-16] MEDS: hydrALAZINE HCL 20 MG/ML 1 ML VIAL IVP STA (08:12)
--- NOTE | 2025-01-16 08:12 | ED ---
Seizure HPI - General Chief Complaint: Seizure Stated Complaint: Seizure Time Seen by Provider: 01/16/25 07:51 Source: patient, family, EMS, RN notes reviewed Mode of arrival: ambulatory Limitations: no limitations - History of Present Illness Initial Comments: 24-year-old male presents emergency department with chief complaint of a seizure. Patient presents via EMS with family stating that he had tonic-clonic seizure he was very postictal. Patient had a seizures several weeks ago which was new onset for patient patient negative CT and workup at that time I did discuss with on-call neurology about starting medication and this was declined. Patient has a follow-up ointment in January with neurology and a follow-up ointment with PCP tomorrow. Patient was on BuSpar noted may be leading to his seizures and discontinued BuSpar. Patient has no complaints other mild headache. - Related Data Previous Rx's Medication Instructions Recorded LORazepam [Ativan] 0.5 mg PO BID PRN 3 Days #6 tab 08/21/24 Albuterol Sulfate [Albuterol 1 puff PO Q4-6H PRN #8.5 gm 12/27/24 Sulfate Hfa] methylPREDNISolone Dose Pack 4 mg PO DIRECTED #1 packet 12/27/24 [Medrol Dose Pack] levETIRAcetam [Keppra] 500 mg PO Q12HR #60 tab 01/16/25 Allergies Allergy/AdvReac Type Severity Reaction Status Date / Time amoxicillin Allergy Nausea & Verified 01/16/25 07:53 Vomiting & Diarrhea Review of Systems ROS Statement: Those systems with pertinent positive or pertinent negative responses have been documented in the HPI. ROS Other: All systems not noted in ROS Statement are negative. Past Medical History Past Medical History: GERD/Reflux, Hypertension, Seizure Disorder Additional Past Medical History / Comment(s): cognitive disability, Autusm History of Any Multi-Drug Resistant Organisms: None Reported Past Surgical History: No Surgical Hx Reported Additional Past Surgical History / Comment(s): Tubes placed in ears Past Psychological History: No Psychological Hx Reported Smoking Status: Never smoker Past Alcohol Use History: None Reported Past Drug Use History: None Reported General Exam Limitations: no limitations General appearance: alert, in no apparent distress Head exam: Present: atraumatic, normocephalic, normal inspection Eye exam: Present: normal appearance, PERRL, EOMI. Absent: scleral icterus, conjunctival injection, periorbital swelling ENT exam: Present: mucous membranes moist. Absent: normal exam, normal oropharynx (Small bite zee noted on the right side of the tongue) Neck exam: Present: normal inspection, full ROM. Absent: tenderness, meningismus, lymphadenopathy Respiratory exam: Present: normal lung sounds bilaterally. Absent: respiratory distress, wheezes, rales, rhonchi, stridor Cardiovascular Exam: Present: normal rhythm, tachycardia, normal heart sounds. Absent: systolic murmur, diastolic murmur, rubs, gallop, clicks GI/Abdominal exam: Present: soft, normal bowel sounds. Absent: distended, tenderness, guarding, rebound, rigid Neurological exam: Present: alert, oriented X3, CN II-XII intact Skin exam: Present: warm, dry, intact, normal color. Absent: rash Course Vital Signs 01/16/25 01/16/25 07:49 08:31 Temperature 97.8 F Pulse Rate 122 H 122 H Respiratory 16 18 Rate Blood Pressure 157/106 138/88 O2 Sat by Pulse 93 L 93 L Oximetry Medical Decision Making - Medical Decision Making Was pt. sent in by a medical professional or institution (, PA, FLIGHT INSPECTOR, urgent care, hospital, or prison...) When possible be specific @ -No Did you speak to anyone other than the patient for history (EMS, parent, family, police, friend...)? What history was obtained from this source @ -Parents providing history and past medical history Did you review nursing and triage notes (agree or disagree)? Why? @ -I reviewed and agree with nursing and triage notes Were old charts reviewed (outside hosp., previous admission, EMS record, old EKG, old radiological studies, urgent care reports/EKG's, prison records)? Report findings @ -reviewed recent CT brain showing no acute intracranial hemorrhage, mass effect Differential Diagnosis (chest pain, altered mental status, abdominal pain women, abdominal pain men, vaginal bleeding, weakness, fever, dyspnea, syncope, headache, dizziness, GI bleed, back pain, seizure, CVA, palpatations, mental health, musculoskeletal)? @ -Differential Seizure: Recurrent seizure disorder, febrile seizure, alcohol withdrawal, stimulants, meningitis, encephalitis, intercranial hemorrhage, intracranial tumor, stroke, eclampsia, thyrotoxicosis, hypocalcemia, hyponatremia, hypernatremia, hypomagnesemia, psychogenic, this is not meant to be an all-inclusive list. EKG interpreted by me (3pts min.). @ -As above X-rays interpreted by me (1pt min.). @ -None done CT interpreted by me (1pt min.). @ -None done U/S interpreted by me (1pt. min.). @ -None done What testing was considered but not performed or refused? (CT, X-rays, U/S, labs)? Why? @ -None What meds were considered but not given or refused? Why? @ -None Did you discuss the management of the patient with other professionals (professionals i.e. Dr., PA, FLIGHT INSPECTOR, lab, RT, psych nurse, certified social workers in health care, senior oracle applications developer, teacher, staff submarine warfare officer, case consultant)? Give summary @ -No Was smoking cessation discussed for >3mins.? @ -No Was critical care preformed (if so, how long)? @ -No Were there social determinants of health that impacted care today? How? (Homelessness, low income, unemployed, alcoholism, drug addiction, transportation, low edu. Level, literacy, decrease access to med. care, snf, rehab)? @ -No Was there de-escalation of care discussed even if they declined (Discuss DNR or withdrawal of care, Hospice)? DNR status @ -No What co-morbidities impacted this encounter? (DM, HTN, Smoking, COPD, CAD, Cancer, CVA, ARF, Chemo, Hep., AIDS, mental health diagnosis, sleep apnea, morbid obesity)? @ -None Was patient admitted / discharged? Hospital course, mention meds given and route, prescriptions, significant lab abnormalities, going to OR and other pertinent info. @ -Discharge patient was given Keppra in the emergency department. Patient is vitally stable. Patient was started on Keppra 500 mg twice daily will follow-up with PCP tomorrow as schedule appointment and neurology as scheduled appointment. Undiagnosed new problem with uncertain prognosis? @ -No Drug Therapy requiring intensive monitoring for toxicity (Heparin, Nitro, Insulin, Cardizem)? @ -No Were any procedures done? @ -No Diagnosis/symptom? @Seizure Acute, or Chronic, or Acute on Chronic? @ -Acute Uncomplicated (without systemic symptoms) or Complicated (systemic symptoms)? @ -complicated Side effects of treatment? @ -No Exacerbation, Progression, or Severe Exacerbation? @ -No Poses a threat to life or bodily function? How? (Chest pain, USA, MS, pneumonia, PE, COPD, DKA, ARF, appy, cholecystitis, CVA, Diverticulitis, Homicidal, Suicidal, threat to staff... and all critical care pts) @ -No - Lab Data Result diagrams: 01/16/25 08:04 01/16/25 08:04 Lab Results 01/16/25 01/16/25 Range/Units 08:04 08:04 WBC 8.28 (4.50-10.00) 10*3/uL RBC 5.37 (4.40-5.60) 10*6/uL Hgb 14.8 (13.0-17.0) g/dL Hct 44.5 (39.6-50.0) % MCV 82.9 (80.0-97.0) fL MCH 27.6 (27.0-32.0) pg MCHC 33.3 (32.0-37.0) g/dL Plt Count 317 (140-440) 10*3/uL MPV 10.7 (9.5-12.2) fL Immature Gran % (Auto) 0.4 % Neutrophils % 50.3 % Lymphocytes % 36.0 % Monocytes % 9.5 % Eosinophils % 2.7 % Basophils % 1.1 % Immature Gran # 0.03 (0.00-0.04) 10*3/uL Neutrophils # 4.17 (1.80-7.70) 10*3/uL Lymphocytes # 2.98 (0.90-5.00) 10*3/uL Monocytes # 0.79 (0.20-1.00) 10*3/uL Eosinophils # 0.22 (0.04-0.35) 10*3/uL Basophils # 0.09 (0.00-0.10) 10*3/uL Sodium 136 L (137-145) mmol/L Potassium 4.7 (3.5-5.1) mmol/L Chloride 102 (98-107) mmol/L Carbon Dioxide 14 L (22-30) mmol/L Anion Gap 20 mmol/L BUN 18 (9-20) mg/dL Creatinine 0.79 (0.66-1.25) mg/dL Est GFR (CKD-EPI)AfAm >90 (>60 ml/min/1.73 sqM) Est GFR (CKD-EPI)NonAf >90 (>60 ml/min/1.73 sqM) Glucose 159 H (74-99) mg/dL Calcium 9.5 (8.4-10.2) mg/dL Magnesium 2.1 (1.6-2.3) mg/dL Total Bilirubin 0.6 (0.2-1.3) mg/dL AST 48 (17-59) U/L ALT 83 H (4-49) U/L Alkaline Phosphatase 79 (38-126) U/L Total Protein 8.0 (6.3-8.2) g/dL Albumin 4.8 (3.5-5.0) g/dL - EKG Data -: EKG Interpreted by Me EKG Comments: 8: 02 sinus tachycardia rate of 118 MN 158 QRS 78 QT/QTc 305/375 Disposition Clinical Impression: Generalized seizure Disposition: HOME SELF-CARE Condition: Stable Instructions (If sedation given, give patient instructions): Seizure/Epilepsy Discharge Instructions & Follow-Up Additional Instructions: Please return to the Emergency Department if symptoms worsen or any other concerns. Prescriptions: levETIRAcetam [Keppra] 500 mg PO Q12HR #60 tab Is patient prescribed a controlled substance at d/c from ED?: No Referrals: Sean Prajapati MD [Primary Care Provider] - 1-2 days Time of Disposition: 08:55
[2025-01-16 08:14] LABS: Basophils # (A) 0.09 10*3/uL (0.00-0.10); Basophils % (A) 1.1 %; Eosinophils # (A) 0.22 10*3/uL (0.04-0.35); Eosinophils % (A) 2.7 %; HCT 44.5 % (39.6-50.0); HGB 14.8 g/dL (13.0-17.0); Lymphocytes # (A) 2.98 10*3/uL (0.90-5.00); MCH 27.6 pg (27.0-32.0); MCHC 33.3 g/dL (32.0-37.0); MCV 82.9 fL (80.0-97.0); Mean Platelet Volume 10.7 fL (9.5-12.2); Monocytes # (A) 0.79 10*3/uL (0.20-1.00); Monocytes % (A) 9.5 %; Neutrophils # (A) 4.17 10*3/uL (1.80-7.70); Neutrophils % (A) 50.3 %; Platelet Count 317 10*3/uL (140-440); RBC 5.37 10*6/uL (4.40-5.60); RDW 13.5 % (11.5-14.5); WBC 8.28 10*3/uL (4.50-10.00)
[2025-01-16 08:26] LABS: African American GFR (CKD) >90 (>60 ml/min/1.73 sqM); Albumin 4.8 g/dL (3.5-5.0); Anion Gap 20 mmol/L; Blood Urea Nitrogen 18 mg/dL (9-20); Calcium 9.5 mg/dL (8.4-10.2); Carbon Dioxide 14 mmol/L (22-30); Chloride 102 mmol/L (98-107); Glucose 159 mg/dL (74-99); Non-African American GFR(CKD) >90 (>60 ml/min/1.73 sqM); Sodium 136 mmol/L (137-145); Total Bilirubin 0.6 mg/dL (0.2-1.3)
[2025-01-16 08:37] LABS: Potassium 4.7 mmol/L (3.5-5.1)
[2025-01-16 08:38] LABS: ALT 83 U/L (4-49); AST 48 U/L (17-59); Alkaline Phosphatase 79 U/L (38-126)
[2025-01-16 08:40] LABS: Magnesium 2.1 mg/dL (1.6-2.3)
[2025-01-16] MEDS: levETIRAcetam IV 500 MG/5 ML VIAL IVP STA (09:00)
[2025-01-16 09:06] VITALS: BP 141/87; PULSE 107; RESP 20; TEMP 97.9
== END 2025-01-16 09:05 | disposition home or self-care (01) ==
LOC: EC 07:48 → EEVIPCON 07:48 → EC 09:05
DX: G40.409 Other generalized epilepsy and epileptic syndromes, not intractable, without status epilepticus (principal); Z88.0 Allergy status to penicillin; R00.0 Tachycardia, unspecified
CPT/HCPCS: 36415; 80053; 83735; 85025; 99284; 96374; 96375; 96361; J0360; J1953

== ENCOUNTER → 2025-04-27 | Outpatient (CLI) | payer MEDICARE, OTHER ==
--- NOTE | 2025-04-27 12:34 | MR ---
EXAMINATION TYPE: MR brain wo/w con DATE OF EXAM: 04/27/2025 9:48 AM COMPARISON: None. CLINICAL INDICATION: Male, 24 years old with history of G40.309, Q04.8 BR W/WO, Seizure. TECHNIQUE: Multiplanar and multispin-echo imaging of the brain was performed both before and after th e administration of contrast. CONTRAST: Patient received 15 mL intravenous Gadobutrol gadolinium contrast. FINDINGS: The ventricles, basal cisterns and sulci overlying the cerebral convexities are within normal limits. There is no evidence for midline shift or mass effect. Acute intracranial hemorrhage or extra-axial collection is not evident. There are no abnormal areas of increased or decreased signal intensity within the brain parenchyma. Following contrast administration, there is no evidence for pathologic enhancement or enhancing mass. The paranasal sinuses and mastoid air cells are well-aerated. IMPRESSION: Unremarkable pre and postcontrast enhanced MRI of the brain. [facility], , 04/27/2025 12:32 PM
== END | disposition home or self-care (01) ==
LOC: RADMRIMAIN 09:03
PROVIDERS: ATTEND Psychiatry & Neurology Neurology
DX: G40.309 Generalized idiopathic epilepsy and epileptic syndromes, not intractable, without status epilepticus (principal); Q04.8 Other specified congenital malformations of brain
CPT/HCPCS: 70553; A9585